=== PATIENT | male | born 1935 | race Caucasian/White ===

== ENCOUNTER → 2019-05-19 | Outpatient (CLI) | payer MEDICARE, BC, OTHER ==
[~2019-05-19] MED LIST: ELIQ5TAB PO; LOSA100T50 PO; MULTCAP PO; ROSU10TA6 PO
[2019-05-19 10:09] LABS: HEMATOCRIT 36.8 % (42.0-52.0); HEMOGLOBIN 12.6 g/dl (13.5-17.5); MEAN CORPUSCULAR HEMOGLOBIN 35.8 pg (27.0-33.0); MEAN CORPUSCULAR HGB CONC 34.2 g/dl (32.0-36.5); MEAN CORPUSCULAR VOLUME 104.5 fl (80.0-96.0); PLATELET COUNT, AUTOMATED 157 10^3/uL (150-450); RED BLOOD COUNT 3.52 10^6/uL (4.30-6.10); WHITE BLOOD COUNT 6.6 10^3/uL (4.0-10.0)
[2019-05-19 10:20] LABS: INR 1.43; PROTHROMBIN TIME 17.1 SECONDS (11.8-14.0)
[2019-05-19 10:34] LABS: ALBUMIN 3.8 GM/DL (3.2-5.2); BILIRUBIN,TOTAL 1.4 MG/DL (0.2-1.0); CALCIUM LEVEL 8.8 MG/DL (8.8-10.2); CREATININE FOR GFR 1.52 MG/DL (0.70-1.30); GLOMERULAR FILTRATION RATE 47.1 (>35); POTASSIUM SERUM 4.3 MEQ/L (3.5-5.1); TOTAL PROTEIN 7.2 GM/DL (6.4-8.2)
[2019-05-19 10:36] LABS: ERYTHROCYTE SEDIMENTATION RATE 77 mm/hr (0-20)
--- NOTE | 2019-05-19 11:06 | REP ---
PA and lateral chest: There are no comparisons. There is a 7 mm nodule inferiorly in the right lung. In the absence of prior studies to document stability. Recommend follow-up CT for further evaluation. Lung [place] otherwise clear. Cardiac size is normal. There is a loop recorder in the anterior chest wall. The giorgio, mediastinum, skeletal structures are unremarkable. Impression: Right lung nodule as described. Follow-up chest CT is recommended for further evaluation. There are no acute cardiopulmonary findings. Electronically Signed by Kendrick Perales MD 05/19/2019 10:57 A
--- NOTE | 2019-05-19 12:15 | ECGEPIP ---
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 Incomplete left bundle branch block pattern Somewhat low voltage with slow precordial R-wave progression; Body habitus versus pulmonary disease. Could not rule out prior septal infarction Nonspecific ST/T-wave abnormality No prior tracing for comparison. Clincal correlation advised Electronically Signed on 05-19-2019 12:14:30 EDT by Beni Franco
== END ==
LOC: M LAB 09:18
PROVIDERS: ATTEND Orthopaedic Surgery
DX: Z01.818 Encounter for other preprocedural examination (principal); M17.12 Unilateral primary osteoarthritis, left knee; I44.7 Left bundle-branch block, unspecified; I48.91 Unspecified atrial fibrillation; Z79.01 Long term (current) use of anticoagulants

== ENCOUNTER 2019-06-07 11:01 | Inpatient (IN) | payer MEDICARE, BC, OTHER ==
--- NOTE | 2019-06-03 09:54 | HPE ---
DATE OF ANTICIPATED ADMISSION: 06/07/2019 ATTENDING PHYSICIAN: Dr. Victor CHIEF COMPLAINT: Left knee pain and stiffness. HISTORY: Patient is an 83-year-old male with progressively worsening left knee pain and stiffness. He has failed to improve with conservative measures. He continues to have symptoms with weightbearing activities and activities of daily living. He has consented for an elective left total knee arthroplasty with Dr. Victor for his continued symptoms. Medical optimization pending with Dr. Ram. CURRENT MEDICATIONS: - losartan 10 mg daily - rosuvastatin 10 mg daily - Eliquis 5 mg twice daily - multivitamin daily ALLERGIES: No known drug allergies. CHRONIC MEDICAL CONDITIONS: 1. Hypertension. 2. Hyperlipidemia. 3. Atrial fibrillation. PAST SURGICAL HISTORY: 1. Prostatectomy. 2. Appendectomy. SOCIAL HISTORY: Patient is a former smoker and denies alcohol use. REVIEW OF SYSTEMS: Patient denies fevers, chills, nausea, vomiting or diarrhea. Denies chest pain, shortness of breath, lightheadedness, dizziness or headaches. Denies any abdominal pain. Patient denies any recent upper respiratory or urinary tract infection symptoms. Patient continues to have left knee pain with weightbearing activities and activities of daily living. PHYSICAL EXAMINATION: GENERAL: Well-nourished, well-developed male in no apparent distress. He is alert, oriented and cooperative. Mood and affect are appropriate. VITAL SIGNS: Blood pressure 132/62, heart rate 56, respirations 14, height 5 feet 11-1/2 inches, weight 223 pounds, temperature 97.9. NECK: Supple without lymphadenopathy. HEART: Regular rate and rhythm. LUNGS: Clear to auscultation bilaterally. ABDOMEN: Soft and nontender to palpation. Bowel sounds are present. MUSCULOSKELETAL: Left knee reveals no erythema, edema or ecchymosis. There is no real tenderness to palpation. Patient has full active range of motion of the left knee with 5/5 strength. No hip irritability elicited with range of motion testing. Calf is soft, nontender to palpation with no palpable cords noted. He is neurovascularly intact distally. LABORATORY DATA: Chest x-ray: There are no acute cardiopulmonary findings. There is a right lung nodule with chest CT recommended. Left knee x-ray notable for end-stage degenerative changes. EKG: Atrial fibrillation with markedly slow ventricular response, incomplete left bundle branch block pattern, somewhat low voltage with slow precordial R-wave progression, body habitus versus pulmonary disease. Cannot rule out prior septal infarction. Nonspecific ST-T wave abnormalities. Comprehensive metabolic profile: BUN elevated at 23, creatinine elevated at 1.52, fasting glucose 87, GFR 47, sodium 141, potassium 4.3, chloride elevated at 109, carbon dioxide 30, anion gap decreased at 5, calcium 8.8. AST 17, ALT 20, alkaline phosphatase 72, total bilirubin elevated at 1.4, total protein 7.2, albumin 3.8, albumin-globulin ratio 1.12. Prothrombin time elevated at 17.1. INR 1.43. Complete blood count: WBC is 6.6, RBCs decreased at 3.52, hemoglobin decreased at 12.6, hematocrit decreased at 36.8, platelets 157. Erythrocyte sedimentation rate elevated at 77. IMPRESSION/PLAN 1. Left knee degenerative arthritis with x-rays notable for end-stage degenerative changes. Patient has consented for an elective left total knee arthroplasty with Dr. Victor for his continued symptoms. Medical optimization pending with Dr. Ram. 2. Right pulmonary nodule. The patient will follow up with his primary progressive care nurse for a dedicated CT scan of the chest for further evaluation. 3. Atrial fibrillation currently on Eliquis. Eliquis was stopped per his primary progressive care nurse recommendations. Patient is also pending cardiology clearance. [facility]
[2019-06-07] VITALS (7 sets, daily range): BP systolic 140–194; BP diastolic 56–82; O2SAT 96–99
[~2019-06-07] VITALS: Ht 182.9 cm; Wt 113.9 kg
[~2019-06-07 11:01] MED LIST changes: +ACETAMINOPHEN 500 MG TAB PO ONE; +LR 1,000 ML IV ONE; +MIDAZOLAM INJ 2 MG/2 ML VIAL (J2250) IV SCH
[2019-06-07] MEDS ORDERED: MIDAZOLAM INJ 2 MG/2 ML VIAL (J2250) As Ordered ONE ×2 (13:34→15:41)
[2019-06-07] MEDS ORDERED: fentaNYL 100 MCG/2 ML INJECTION (J3010) As Ordered ONE ×2 (13:34→15:41)
[2019-06-07] MEDS: ATROPINE SULF 1MG/10ML SYRINGE (J0461) IV SCH ×2 (14:07→14:16)
[2019-06-07] MEDS: fentaNYL 100 MCG/2 ML INJECTION (J3010) IV SCH ×2 (14:28→14:36)
[2019-06-07] MEDS ORDERED: BUPIVACAINE HCL 0.25% 10 ML VIAL As Ordered ONE (14:37)
[2019-06-07] MEDS ORDERED: EPINEPHrine INJ 1 MG/ML 1ML AMP As Ordered ONE (14:37)
[2019-06-07] MEDS ORDERED: TRANEXAMIC ACID 100 MG/ML 10ML VIAL As Ordered ONE (14:37)
[2019-06-07] MEDS ORDERED: ceFAZolin 1GM INJ (J0690 PER 500MG) As Ordered ONE (14:37)
[2019-06-07] MEDS ORDERED: BUPIVACAINE LIPOSOME/PF 1.3% 20ML VIAL (13.3MG/ML)(EXPAREL)(C9290 PER1MG) As Ordered ONE (14:38)
[2019-06-07] MEDS ORDERED: ROPIvacaine 0.5% 30 ML INJECTION (J2795 PER 1MG) ONE (15:00)
[2019-06-07] MEDS ORDERED: LIDOCAINE 1% MDV 20ML VIAL ONE (15:00)
[2019-06-07] MEDS ORDERED: EPINEPHrine INJ 1 MG/ML 1ML AMP ONE (15:00)
[2019-06-07] MEDS ORDERED: LIDOCAINE 2% INJ 100 MG/5 ML SDV (FOR ANES.) As Ordered ONE (15:41)
[2019-06-07] MEDS ORDERED: PROPOFOL 200 MG/20 ML VIAL As Ordered ONE (15:41)
[2019-06-07] MEDS ORDERED: BUPIVACAINE HCL 0.5% 30 ML VIAL As Ordered ONE (15:41)
[2019-06-07] MEDS ORDERED: ePHEDrine SULFATE 25 MG/5 ML(5MG/ML) SYRINGE As Ordered ONE (15:58)
[2019-06-07] MEDS ORDERED: ACETAMINOPHEN 1000MG 100ML IV BTL (OFIRMEV) (J0131 PER 10MG) As Ordered ONE (15:59)
[2019-06-07] MEDS ORDERED: METOCLOPRAMIDE INJ 10MG/2ML VIAL (J2765) IV PRN (17:30)
[2019-06-07] MEDS ORDERED: fentaNYL 100 MCG/2 ML INJECTION (J3010) IV PRN (17:30)
[2019-06-07] MEDS ORDERED: ONDANSETRON 4MG/2ML VIAL (J2405) IV PRN (17:30)
[2019-06-07] MEDS ORDERED: PERCOCET 5MG/325MG TAB PO PRN (17:30)
[2019-06-07] MEDS ORDERED: LR 1,000 ML IV SCH ×2 (17:30→17:45)
[2019-06-07] MEDS ORDERED: HYDROMORPHONE HCL 0.5 MG/ 0.5 ML SYRINGE (J1170 PER 1) IV PRN (17:30)
[2019-06-07] MEDS ORDERED: FLEET ENEMA PR PRN (17:45)
[2019-06-07] MEDS ORDERED: ACETAMINOPHEN TAB 650MG DOSE (2X325MG) PO PRN (17:45)
--- NOTE | 2019-06-07 18:42 | CR ---
DATE OF CONSULTATION: 06/07/2019 CHIEF COMPLAINT: Bradycardia. HISTORY OF PRESENT ILLNESS: This is an 83-year-old gentleman with past medical history of atrial fibrillation on Eliquis, hypertension, hyperlipidemia, who has a loop recorder placed, who comes in for left total knee replacement for osteoarthritis. He is status post surgery and is currently in postop and had postop bradycardia, requiring multiple doses of atropine. The patient reports, however, he has had ongoing issues with bradycardia and he currently has a loop recorder. His outpatient cardiologists were considering putting a pacemaker, but had not reached a decision yet. He is currently completely asymptomatic. REVIEW OF SYSTEMS: Negative of 14 out of 14 systems except as noted above. PAST MEDICAL HISTORY: As noted above in history of present illness (HPI). PAST SURGICAL HISTORY: 1. Prostate surgery. 2. Appendectomy. MEDICATIONS: The patient's home medications are: - Eliquis 5 mg twice a day - losartan 100 mg daily - Crestor 10 mg every other day ALLERGIES: No known drug allergies. SOCIAL HISTORY: Patient lives with his . No smoking, alcohol or drugs. FAMILY HISTORY: No family history of heart disease. PHYSICAL EXAMINATION: Currently, patient is afebrile to 97.3, blood pressure 147/64, pulse of 45, respiratory rate of 15, saturating 100% on room air. GENERAL: He is in no acute distress, pleasant. HEENT: Oropharynx clear. CARDIOVASCULAR: Bradycardiac. No murmurs, rubs or gallops. LUNGS: Clear to auscultation bilaterally. ABDOMEN: Soft, nontender, nondistended. Positive bowel sounds. EXTREMITIES: Left leg is wrapped from recent surgery. No notable edema noted. NEUROLOGIC: He is alert and oriented times three, follows simple commands. No focal neurologic deficits. SKIN: Left knee is currently dressed and intact. PSYCHIATRIC: Mood stable. LABORATORIES: Currently are pending. IMAGING: Patient had a knee x-ray done postoperatively, but the read is currently pending. ASSESSMENT AND PLAN: This is an 83-year-old gentleman with past medical history of atrial fibrillation with loop recorder, hypertension, hyperlipidemia, who presents postoperatively from total knee replacement with bradycardia. PROBLEMS: 1. Bradycardia. It seems like this is probably chronic. He is not on any home beta blockers or calcium channel blockers. He is currently completely asymptomatic; however, given his history and current loop recorder, I am going to consult cardiology. 2. Hypertension. I am going to hold his home losartan for now. 3. Hyperlipidemia. He is on Crestor every other day. 4. Status post total knee replacement. Postoperative management per orthopedics. 5. Atrial fibrillation. Orthopedics plans on resuming his home Eliquis tomorrow. We will continue to follow this patient.
[2019-06-07] MEDS ORDERED: ATROPINE SULF 1MG/10ML SYRINGE (J0461) As Ordered ONE (19:19)
[2019-06-07] MEDS: ROSUVASTATIN 10 MG TAB (CRESTOR) PO SCH (23:02)
[2019-06-07] MEDS: HYDROMORPHONE HCL 0.5 MG/ 0.5 ML SYRINGE (J1170 PER 1) IV PRN (23:12)
[2019-06-08] VITALS (14 sets, daily range): BP systolic 130–162; BP diastolic 52–82; O2SAT 91–96
[2019-06-08] MEDS: HYDROMORPHONE HCL 0.5 MG/ 0.5 ML SYRINGE (J1170 PER 1) IV PRN (03:12)
[2019-06-08 05:22] LABS: HEMATOCRIT 34.2 % (42.0-52.0); HEMOGLOBIN 11.4 g/dl (13.5-17.5); MEAN CORPUSCULAR HEMOGLOBIN 34.4 pg (27.0-33.0); MEAN CORPUSCULAR HGB CONC 33.3 g/dl (32.0-36.5); MEAN CORPUSCULAR VOLUME 103.3 fl (80.0-96.0); PLATELET COUNT, AUTOMATED 150 10^3/uL (150-450); RED BLOOD COUNT 3.31 10^6/uL (4.30-6.10); WHITE BLOOD COUNT 9.8 10^3/uL (4.0-10.0)
[2019-06-08 05:33] LABS: INR 1.18; PROTHROMBIN TIME 14.7 SECONDS (11.8-14.0)
[2019-06-08 05:46] LABS: CALCIUM LEVEL 8.3 MG/DL (8.8-10.2); CREATININE FOR GFR 1.29 MG/DL (0.70-1.30); GLOMERULAR FILTRATION RATE 56.9 (>35); POTASSIUM SERUM 4.2 MEQ/L (3.5-5.1)
--- NOTE | 2019-06-08 07:21 | REP ---
REASON: Status post TKR. AP and lateral portable views were obtained. The femoral and tibial components of the TKR are well seated and well approximated. There is expected postoperative soft tissue swelling. There is an anterior skin staple line in place. IMPRESSION: Status post TKR. Electronically Signed by Gavino Vegas DO 06/08/2019 10:08 A
--- NOTE | 2019-06-08 07:57 | RO ---
DATE OF PROCEDURE: 06/07/2019 PREPROCEDURE DIAGNOSIS: Left knee degenerative arthritis. POSTPROCEDURE DIAGNOSIS: Left knee degenerative arthritis. PROCEDURE: Left total knee arthroplasty using a size 8 cruciate retaining Attune femoral component cemented with a size 8 tibial tray and a 6 mm rotating platform polyethylene insert and a 38 mm polyethylene button. All components were cemented. Prostheses made by [employer]. SURGEON: Dr. Lesly iVctor PRESS WORKER HELPER: Aura Gaytan PA-C ANESTHESIA: Spinal with left femoral nerve block. COMPLICATIONS: None. SPECIMENS: Joint surface. ESTIMATED BLOOD LOSS: 20 mL. TOURNIQUET TIME: 58 minutes. DESCRIPTION OF PROCEDURE: Antibiotics given intravenously preoperatively. Then a successful left femoral nerve block and then a spinal anesthetic was induced. A tourniquet was placed in the left upper thigh and not inflated. The left lower extremity was carefully prepped, draped in the usual sterile fashion and elevated and after an appropriate time-out, the tourniquet was inflated. Then a longitudinal incision was made from a medial parapatellar approach to the knee. Bovie cautery was used to coagulate the crossing vessels. Subperiosteal dissection around the proximal, medial and lateral tibial plateau was performed and the patella was everted. The anterior cruciate ligament (ACL) was debrided. Drill placed down the center of the femoral canal followed by the intramedullary trever with the distal femoral cutting jig set at 5 degree valgus, cut at 9 mm resection level for a left knee. It was pinned into position, distal femoral cut performed. The AP sizing jig measured for a size #8 prosthesis. 3 degree external rotation were dialed in and then the drill holes made and the 4-in-1 block applied. Anterior and posterior chamfer cuts then performed. Notchplasty jig was then applied and then the notchplasty performed. We then exposed the proximal tibia, used the extramedullary alignment jig estimated it being parallel to the mechanical axis referencing off the medial tibial condyle at 4 mm resection level. The block was pinned into position and a second check with the extramedullary trever confirmed that we appeared to be parallel to the mechanical axis. We then performed the proximal tibial osteotomy and then the laminar road conductor was placed laterally and we performed a completion medial meniscectomy and debridement of posterior and medial osteophytes. Then placed the laminar road conductor medially and performed a completion of the lateral meniscectomy and debridement of the posterolateral osteophytes. The spacer blocks were applied and the 6 mm spacer had good symmetry both in flexion and in extension to varus and valgus stress testing. We then exposed the proximal tibia, sized for a size #8 tibial tray, which was pinned into position followed by the reamer and broach, followed by the trial 6 mm insert and then the 8 mm femoral trial. It fit nicely. Then the knee was brought into extension, the patella everted. A patellar osteotomy was performed and sized for a 38 button, lug holes drilled, trial placed and the patellofemoral tracking was anatomic. At this point, we drilled the lug holes for the femur and removed all trial components. Copiously pulsatile lavaged and irrigated out the knee joint, placed Exparel in the subperiosteal tissues along the distal femur and the proximal tibia as Ms. Aura Gaytan, at this point, mixed the cement on the back table as I prepared the bony surfaces for cementing by copiously pulsatile lavaged irrigating and thoroughly drying all of the bony surfaces. Ms. Aura Gaytan was also critical to the success of this difficult operating by helping with appropriate soft tissue retraction, helped to mix the cement, helped to close the wound, helped to prepare the patient, amongst many other tasks to allow me to perform the operation smoothly, efficiently and safely. We then cemented the tibial tray, removed excess cement, plated the polyethylene. Cemented the femoral component, removed excess cement and brought the knee into extension. We then cemented the patellar button and the removed excess cement and held it with a clamp with the knee in full extension until the cement hardened. As we were awaiting this, we copiously irrigated out the knee joint, then instilled tranexamic acid in the knee joint. We then closed the apex of the arthrotomy with two #1-0 PDS sutures. The medial parapatellar area was closed with a #1-0 PDS suture, then a running double-arm #1-0 Stratafix used to close the capsule, then the tourniquet was released. We irrigated between layers, closed the deep subdermal tissues with interrupted #2-0 PDS sutures. Skin was closed with nicanor covered by a Optifoam with dry sterile bulky dressing. Then the patient was transferred to the recovery room in stable condition. There were no intraoperative complications.
[2019-06-08] MEDS: APIXABAN 5 MG TAB (ELIQUIS) PO SCH ×2 (08:03→20:40)
[2019-06-08] MEDS: MIRALAX *UNIT DOSE* 17GM PACKET PO SCH (08:03)
[2019-06-08] MEDS: MOM 30ML SUSPENSION UDC PO SCH (08:03)
[2019-06-08] MEDS: PERCOCET 5MG/325MG TAB PO PRN ×3 (08:03→21:45)
[2019-06-08] MEDS ORDERED: SLF 3 ML SYR IV PRN (08:30)
[2019-06-08] MEDS ORDERED: ONDANSETRON 4MG/2ML VIAL (J2405) IV ONE (10:00)
--- NOTE | 2019-06-08 12:00 | IPNPDOC ---
Date Seen The patient was seen on 06/08/19. Progress Note SUBJECTIVE: Patient tells me that he is feeling well, he tells me that over the last several months intermittently has had small episodes of lightheadedness but no episodes frankly passing out or anything that he would call symptoms of dizziness. He tells me he is quite active. He currently does have some pain in his left knee as expected otherwise patient denies chest pain, shortness breath, nausea, vomiting, fevers, chills OBJECTIVE PHYSICAL EXAMINATION: VITAL SIGNS: Please see below. GENERAL: Pleasant elderly man sitting up in bed awake alert oriented speaking in complete sentences no acute distress HEENT: Moist mucous membranes no elevation in CVP CARDIOVASCULAR: S1 S2 irregular bradycardic no additional heart sounds a ppreciated. RESPIRATORY: Clear to auscultation bilaterally. ABDOMINAL: Bowel sounds present abdomen soft and nontender, obese EXTREMITIES: No clubbing cyanosis or edema left knee is wrapped in an Bobby wrap dressing is clean dry and intact NEUROLOGICAL: Spontaneously moves all 4 extremities cranial 2 through 12 grossly intact no gross focal deficits appreciated, decreased range of motion of the left lower extremity secondary to pain PSYCHOLOGICAL: Appropriate LABORATORY DATA, MICROBIOLOGY: Please see below. IMAGING STUDIES: Status post TKR ASSESSMENT AND PLAN: This is a 83-year-old status post left total knee replacement with significant bradycardia post-procedurally. PROBLEMS: 1. Bradycardia: Patient does not demonstrate any clear symptoms post- procedurally he did receive several doses of atropine at the present time the patient denies any complaints and tells me that he has known about this for quite some time. I did offer an inpatient cardiology consultation is less receptive to this at this time I would rather have a pacemaker placed through his primary tank filler's office significant weight. I reviewed his telemetry although he is quite bradycardic at night while sleeping he is certainly asymptomatic with it. He is currently wearing a loop recorder which he will continue with his primary tank filler. I would recommend monitoring him on telemetry for an additional 24 hours and symptoms as well as him work with physical therapy should he not have any symptoms and clear physical therapy could consider discharge home with outpatient follow-up to his primary tank filler's office 2. Hypertension: Home losartan is on hold. 3. Dyslipidemia: Continue with every other day Crestor. 4. Osteoporosis:. Perioperative Management as per orthopedic surgery. 5. Atrial fibrillation: He is anticoagulated she is bradycardic not requiring any rate controlling agents as outlined above DVT prophylaxis: As per orthopedic surgery anticoagulation DISPOSITION: Possibly home within the next 24-48 hours. VS, I&O, 24H, Fishbone Vital Signs/I&O Vital Signs Date Time Temp Pulse Resp B/P (MAP) Pulse Ox O2 Delivery O2 Flow Rate FiO2 06/08/19 08:33 17 06/08/19 08:00 97.9 72 144/52 (82) 98 06/07/19 15:18 3 I&O- Last 24 Hours up to 6 AM 06/08/19 06:00 Intake Total 2550 ml Output Total 1250 ml Balance 1300 ml Laboratory Data 24H LABS Laboratory Tests 2 06/08/19 05:06: Nucleated Red Blood Cells % (auto) 0.0, Prothrombin Time 14.7H, Prothromb Time International Ratio 1.18, Anion Gap 5L, Glomerular Filtration Rate 56.9, Blood Urea Nitrogen 23H, Creatinine 1.29, Sodium Level 141, Potassium Level 4.2, Chloride Level 108H, Carbon Dioxide Level 28, Calcium Level 8.3L CBC/BMP Laboratory Tests 06/08/19 05:06 Red Blood Count 3.31 L, Mean Corpuscular Volume 103.3 H, Mean Corpuscular Hemoglobin 34.4 H, Mean Corpuscular Hemoglobin Concent 33.3, Red Cell Distribution Width 11.7, Calcium Level 8.3 L MIGUEL SINGH MD Jun 08, 2019 12:00
[2019-06-08] MEDS ORDERED: ONDANSETRON 4MG/2ML VIAL (J2405) IV SCH (13:00)
[2019-06-08] MEDS ORDERED: ONDANSETRON 4MG/2ML VIAL (J2405) IV PRN (13:15)
[2019-06-08] MEDS: SLF 3 ML SYR IV SCH ×2 (13:37→20:40)
[2019-06-09] VITALS (7 sets, daily range): BP systolic 169–174; BP diastolic 72–74; O2SAT 91–93
[2019-06-09] MEDS: SLF 3 ML SYR IV SCH ×2 (06:00→14:10)
[2019-06-09] MEDS ORDERED: HYDR-3713 PO (07:14)
[2019-06-09 08:11] LABS: HEMATOCRIT 36.2 % (42.0-52.0); HEMOGLOBIN 12.1 g/dl (13.5-17.5); MEAN CORPUSCULAR HGB CONC 33.4 g/dl (32.0-36.5); MEAN CORPUSCULAR VOLUME 104.6 fl (80.0-96.0); PLATELET COUNT, AUTOMATED 150 10^3/uL (150-450); RED BLOOD COUNT 3.46 10^6/uL (4.30-6.10); WHITE BLOOD COUNT 14.5 10^3/uL (4.0-10.0)
[2019-06-09 08:26] LABS: INR 1.58; PROTHROMBIN TIME 18.6 SECONDS (11.8-14.0)
[2019-06-09] MEDS: ROSUVASTATIN 10 MG TAB (CRESTOR) PO SCH (08:31)
[2019-06-09] MEDS: MIRALAX *UNIT DOSE* 17GM PACKET PO SCH (08:31)
[2019-06-09] MEDS: PERCOCET 5MG/325MG TAB PO PRN ×3 (08:31→16:05)
[2019-06-09] MEDS: APIXABAN 5 MG TAB (ELIQUIS) PO SCH (08:31)
[2019-06-09] MEDS: MOM 30ML SUSPENSION UDC PO SCH (08:31)
[2019-06-09 08:38] LABS: CALCIUM LEVEL 8.5 MG/DL (8.8-10.2); CREATININE FOR GFR 1.27 MG/DL (0.70-1.30); GLOMERULAR FILTRATION RATE 57.9 (>35); POTASSIUM SERUM 3.8 MEQ/L (3.5-5.1)
--- NOTE | 2019-06-09 13:30 | IPNPDOC ---
Date Seen The patient was seen on 06/09/19. Progress Note SUBJECTIVE: Patient is a 83-year-old male who is admitted for elective left knee replacement. Patient was seen and examined this morning laying comfortably on his bed with his son and at bedside. Patient has no complaints this morning and would like to go home. Telemetry shows his heart rate has been in the 60s to 70s this am. He denies any lightheadedness or dizziness. He does have some aches in his left thigh but notes that he expects this from the surgery. He denies lightheadedness, dizziness, chest pain, shortness of breath, vomiting. He worked with PT the day before as well as of today was a little bit more of a struggle due to his left knee but he will continue with PT when he goes home and voices no concerns. OBJECTIVE PHYSICAL EXAMINATION: VITAL SIGNS: Please see below. GENERAL: Very pleasant 83-year-old male laying flat on his bed. Alert and orientedx3, speaking in complete sentences in no acute distress. HEENT: Atraumatic normocephalic moist mucous membranes no JVD noted CARDIOVASCULAR: S1-S2 sounds present irregularly rhythm with bradycardic rate with no audible murmurs or rubs. RESPIRATORY: Clear to auscultate bilaterally no wheezing , rhonchi or rales EXTREMITIES: No lower extremity edema for calf tenderness noted. Left knee is wrapped in an Bobby bandage dressing is clear dry with no discharge noted. LABORATORY DATA, IMAGING STUDIES, MICROBIOLOGY: Please see below. DVT prophylaxis ordered?: Yes per surgery, continue apixaban ASSESSMENT AND PLAN: This is a 83-year-old male who is admitted for elective left knee replacement medical team was consulted for bradycardia management. PROBLEMS: Bradycardia -stable, known history of bradycardia -post-procedurally s/p several doses of atropine -f/u w/ primary cane splicer's office for discussion for pacemaker placement. Hypertension: -may resume losartan upon discharge Dyslipidemia -c/w q2d Crestor. Osteoporosis: -Perioperative Management as per orthopedic surgery. Atrial fibrillation -c/w apixaban -Not on rate controlling medication for he is currently bradycardic VS, I&O, 24H, Fishbone Vital Signs/I&O Vital Signs Date Time Temp Pulse Resp B/P (MAP) Pulse Ox O2 Delivery O2 Flow Rate FiO2 06/09/19 12:40 18 06/09/19 09:01 97 06/09/19 08:00 97.7 70 169/72 (104) 06/07/19 15:18 3 I&O- Last 24 Hours up to 6 AM 06/09/19 06:00 Intake Total 810 ml Output Total 0 ml Balance 810 ml Laboratory Data 24H LABS Laboratory Tests 2 06/09/19 07:33: Nucleated Red Blood Cells % (auto) 0.0, Prothrombin Time 18.6H, Prothromb Time International Ratio 1.58, Anion Gap 8, Glomerular Filtration Rate 57.9, Blood Urea Nitrogen 21H, Creatinine 1.27, Sodium Level 138, Potassium Level 3.8, Chloride Level 103, Carbon Dioxide Level 27, Calcium Level 8.5L CBC/BMP Laboratory Tests 06/09/19 07:33 Red Blood Count 3.46 L, Mean Corpuscular Volume 104.6 H, Mean Corpuscular Hemoglobin 35.0 H, Mean Corpuscular Hemoglobin Concent 33.4, Red Cell Distribution Width 11.9, Calcium Level 8.5 L OCTAVIO BENITEZ DO Jun 09, 2019 13:30
== END 2019-06-09 16:43 | disposition home or self-care (01) | DRG 470 ==
LOC: M OR 11:01 → M PCU 18:19
PROVIDERS: ADMIT Orthopaedic Surgery; ATTEND Orthopaedic Surgery
PROC: 0SRD0J9 Replacement of Left Knee Joint with Synthetic Substitute, Cemented, Open Approach (ICD-10-PCS; principal; 2019-06-07 14:25)
DX: M17.12 Unilateral primary osteoarthritis, left knee (principal); I10 Essential (primary) hypertension; E78.5 Hyperlipidemia, unspecified; M81.0 Age-related osteoporosis without current pathological fracture; I48.91 Unspecified atrial fibrillation; R00.1 Bradycardia, unspecified; R91.1 Solitary pulmonary nodule; Z90.49 Acquired absence of other specified parts of digestive tract; Z90.79 Acquired absence of other genital organ(s); Z87.891 Personal history of nicotine dependence; Z79.01 Long term (current) use of anticoagulants; Z79.899 Other long term (current) drug therapy

== ENCOUNTER 2023-06-19 14:27 | Emergency (ER) | payer MEDICARE, BC, OTHER ==
[~2023-06-19] VITALS: Ht 182.9 cm; Wt 93.7 kg
[~2023-06-19 14:27] MED LIST changes: -ACETAMINOPHEN 500 MG TAB PO ONE; +HYDR-3713 PO; +LOSA100T46 PO; -LOSA100T50 PO; -LR 1,000 ML IV ONE; -MIDAZOLAM INJ 2 MG/2 ML VIAL (J2250) IV SCH
[2023-06-19] MEDS ORDERED: OXYMETAZOLINE 0.05% NASAL SPRAY (AFRIN) ONE (16:45)
[2023-06-19] MEDS ORDERED: SILVER NITRATE APPLICATOR (1 = QTY 10) TOP ONE (16:45)
[2023-06-19 17:33] VITALS: BP 152/78; TEMP 97.4; O2SAT 98
== END 2023-06-19 17:35 | disposition home or self-care (01) ==
LOC: M ED 14:27
DX: R04.0 Epistaxis (principal); I48.91 Unspecified atrial fibrillation; E78.00 Pure hypercholesterolemia, unspecified; I10 Essential (primary) hypertension; G47.30 Sleep apnea, unspecified; Z79.899 Other long term (current) drug therapy; Z79.01 Long term (current) use of anticoagulants

== ENCOUNTER 2024-01-19 13:38 | Emergency (ER) | payer MEDICARE, BC, OTHER ==
[~2024-01-19] VITALS: Ht 182.9 cm; Wt 92.9 kg
[2024-01-19 13:40] VITALS: BP 151/70; TEMP 96.5; O2SAT 99
[2024-01-19] MEDS ORDERED: FOLI1TAB11 PO (14:00)
[2024-01-19] MEDS ORDERED: B-12100010 PO (14:00)
[2024-01-19] MEDS ORDERED: HYDR12.55 PO (14:00)
[2024-01-19 14:56] LABS: BASO % 0.2 % (0.0-1.0); HEMATOCRIT 30.8 % (42.0-52.0); HEMOGLOBIN 10.2 g/dl (13.5-17.5); LYMPH # 1.5 10^3/uL (1.5-5.0); MEAN CORPUSCULAR HEMOGLOBIN 33.2 pg (27.0-33.0); MEAN CORPUSCULAR HGB CONC 33.1 g/dl (32.0-36.5); MEAN CORPUSCULAR VOLUME 100.3 fl (80.0-96.0); MONO # 1.5 10^3/uL (0.0-0.8); MONO % 13.2 % (2.0-8.0); NEUTROPHILS # 7.9 10^3/uL (1.5-8.5); NEUTROPHILS % 68.7 % (36.0-66.0); PLATELET COUNT, AUTOMATED 191 10^3/uL (150-450); RED BLOOD COUNT 3.07 10^6/uL (4.30-6.10); WHITE BLOOD COUNT 11.4 10^3/uL (4.0-10.0)
[2024-01-19 15:24] LABS: CALCIUM LEVEL 8.2 MG/DL (8.3-10.6); CREATININE FOR GFR 1.77 MG/DL (0.70-1.30); POTASSIUM SERUM 3.7 MMOL/L (3.5-5.1)
== END 2024-01-19 19:24 | disposition left against medical advice (07) ==
LOC: M ED 13:38
DX: Z53.21 Procedure and treatment not carried out due to patient leaving prior to being seen by health care provider (principal)

== ENCOUNTER → 2024-02-26 | Outpatient (CLI) | payer MEDICARE, BC ==
[~2024-02-26] MED LIST changes: +B-12100010 PO; +E-Z-GAS II EFFERVESCENT PACKET (SODIUM BICARB./CITRIC ACID/SIMETHICONE) As Ordered ONE; +E-Z-HD 98% w/w 340GM SUSP BTL As Ordered ONE; +E-Z-PAQUE 96% w/w SUSP 176GM BTL As Ordered ONE; +FOLI1TAB11 PO; +HYDR12.55 PO
== END ==
LOC: M RAD 08:58
PROVIDERS: ATTEND Otolaryngology
DX: R11.0 Nausea (principal)

== ENCOUNTER → 2024-03-01 | Outpatient (CLI) | payer MEDICARE, BC ==
[~2024-03-01] MED LIST changes: -E-Z-GAS II EFFERVESCENT PACKET (SODIUM BICARB./CITRIC ACID/SIMETHICONE) As Ordered ONE; -E-Z-HD 98% w/w 340GM SUSP BTL As Ordered ONE; -E-Z-PAQUE 96% w/w SUSP 176GM BTL As Ordered ONE
== END ==
LOC: M PLARAD 10:53
PROVIDERS: ATTEND Internal Medicine
DX: R91.1 Solitary pulmonary nodule (principal)
CPT/HCPCS: 78815; A9552

== ENCOUNTER → 2024-03-17 | Outpatient (CLI) | payer MEDICARE, BC ==
[~2024-03-17] MED LIST changes: -ROSU10TA6 PO; +ROSU10TA61 PO
== END ==
LOC: M PLAIMG 07:57
PROVIDERS: ATTEND Otolaryngology
DX: J32.0 Chronic maxillary sinusitis (principal); R13.10 Dysphagia, unspecified; R49.0 Dysphonia; R04.0 Epistaxis

== ENCOUNTER → 2024-03-24 | Outpatient (CLI) | payer MEDICARE, BC ==
[~2024-03-24] MED LIST changes: +BARIUM SULFATE 700 MG TABLET (E-Z-DISK) As Ordered ONE; +E-Z-GAS II EFFERVESCENT PACKET (SODIUM BICARB./CITRIC ACID/SIMETHICONE) As Ordered ONE; +E-Z-HD 98% w/w 340GM SUSP BTL As Ordered ONE; +E-Z-PAQUE 96% w/w SUSP 176GM BTL As Ordered ONE; +VARIBAR NECTAR 40% w/v 240ML SUSP BTL As Ordered ONE; +VARIBAR PUDDING 40% w/v 230ML TUBE As Ordered ONE
== END ==
LOC: M RAD 12:26
PROVIDERS: ATTEND Otolaryngology
DX: R49.0 Dysphonia (principal)

== ENCOUNTER → 2024-03-31 | Outpatient (CLI) | payer MEDICARE, BC ==
[~2024-03-31] MED LIST changes: -BARIUM SULFATE 700 MG TABLET (E-Z-DISK) As Ordered ONE; -E-Z-GAS II EFFERVESCENT PACKET (SODIUM BICARB./CITRIC ACID/SIMETHICONE) As Ordered ONE; -E-Z-HD 98% w/w 340GM SUSP BTL As Ordered ONE; -E-Z-PAQUE 96% w/w SUSP 176GM BTL As Ordered ONE; +HOME MED LIST COMPLETE! XX SCH; +LIDOCAINE 1% MDV 20ML VIAL As Ordered ONE; +LOSA50TA28 PO; +POTA10CA70 PO; +THERTAB52 PO; -VARIBAR NECTAR 40% w/v 240ML SUSP BTL As Ordered ONE; -VARIBAR PUDDING 40% w/v 230ML TUBE As Ordered ONE
[2024-03-31 12:25] VITALS: BP 140/65; TEMP 97.7; O2SAT 100
== END ==
LOC: M IRPRO 11:53
PROVIDERS: ATTEND Internal Medicine Pulmonary Disease
DX: R91.1 Solitary pulmonary nodule (principal)

== ENCOUNTER 2024-04-06 12:46 | Day surgery (SDC) | payer MEDICARE, BC ==
[~2024-04-06] VITALS: Ht 182.9 cm; Wt 85.6 kg
[~2024-04-06 12:46] MED LIST changes: -HOME MED LIST COMPLETE! XX SCH; -LIDOCAINE 1% MDV 20ML VIAL As Ordered ONE
[2024-04-06] MEDS ORDERED: LR 1,000 ML IV SCH ×2 (13:20→20:30)
[2024-04-06] MEDS: LEVALBUTEROL 1.25MG 0.5ML CONCENTRATE NEB NEB ONE (14:06)
[2024-04-06] MEDS ORDERED: propofoL 200 MG/20 ML VIAL As Ordered ONE (15:45)
[2024-04-06] MEDS ORDERED: fentaNYL 100 MCG/2 ML INJECTION As Ordered ONE (15:45)
[2024-04-06] MEDS ORDERED: ROCURONIUM BROMIDE 50MG/5ML VIAL As Ordered ONE (15:45)
[2024-04-06] MEDS ORDERED: LIDOCAINE 2% 100MG/5ML SDV (FOR ANES.) As Ordered ONE (15:45)
[2024-04-06] MEDS: METHYLENE BLUE 0.5% (5MG/ML) 10 ML AMP (PROVAYBLUE) As Ordered ONE (16:27)
[2024-04-06] MEDS: OXYMETAZOLINE 0.05% NASAL SPRAY (AFRIN) As Ordered ONE (16:28)
[2024-04-06] MEDS ORDERED: ONDANSETRON 4MG 2ML VIAL As Ordered ONE (16:58)
[2024-04-06] MEDS ORDERED: SUGAMMADEX SODIUM 500 MG/5 ML VIAL (BRIDION) As Ordered ONE (17:10)
[2024-04-06] MEDS ORDERED: GLYCOPYRROLATE INJ 0.2 MG/ML 2 ML VIAL As Ordered ONE (17:19)
[2024-04-06] MEDS ORDERED: fentaNYL 100 MCG/2 ML INJECTION IV PRN (18:05)
[2024-04-06] MEDS ORDERED: ONDANSETRON 4MG 2ML VIAL IV PRN (18:05)
[2024-04-06] MEDS ORDERED: MORPHINE 2 MG/ML 1ML VIAL IV PRN (18:05)
[2024-04-06] MEDS ORDERED: oxyCODONE 5MG TAB PO PRN (18:05)
[2024-04-06] MEDS: LIDOCAINE W/EPINEPHRINE 1% 20ML VIAL As Ordered ONE (18:19)
[2024-04-06 19:15] VITALS: BP 146/66; TEMP 98.5; O2SAT 96
== END 2024-04-06 19:35 | disposition home or self-care (01) ==
LOC: M SDC 12:46
PROVIDERS: ATTEND Otolaryngology
DX: J38.3 Other diseases of vocal cords (principal); R13.10 Dysphagia, unspecified; R49.0 Dysphonia; I48.91 Unspecified atrial fibrillation; G47.30 Sleep apnea, unspecified; Z85.46 Personal history of malignant neoplasm of prostate; Z79.01 Long term (current) use of anticoagulants; Z87.891 Personal history of nicotine dependence; Z90.49 Acquired absence of other specified parts of digestive tract

== ENCOUNTER 2024-04-08 10:43 | Inpatient (IN) | payer MEDICARE, BC ==
[~2024-04-08] VITALS: Ht 182.9 cm; Wt 88.2 kg
[2024-04-08 11:36] LABS: BASO % 0.1 % (0.0-1.0); EOS % 0.2 % (0.0-3.0); HEMATOCRIT 27.8 % (42.0-52.0); LYMPH # 0.6 10^3/uL (1.5-5.0); LYMPH % 2.8 % (24.0-44.0); MEAN CORPUSCULAR HGB CONC 32.4 g/dl (32.0-36.5); MEAN CORPUSCULAR VOLUME 98.9 fl (80.0-96.0); MONO # 2.1 10^3/uL (0.0-0.8); MONO % 9.5 % (2.0-8.0); NEUTROPHILS % 85.6 % (36.0-66.0); PLATELET COUNT, AUTOMATED 193 10^3/uL (150-450); RED BLOOD COUNT 2.81 10^6/uL (4.30-6.10); WHITE BLOOD COUNT 22.2 10^3/uL (4.0-10.0)
[2024-04-08 11:50] LABS: INR 1.39; PARTIAL THROMBOPLASTIN TIME 31.4 SECONDS (24.8-34.2); PROTHROMBIN TIME 16.7 SECONDS (12.5-14.5)
[2024-04-08 12:01] LABS: CK-MB VALUE MASS 4.1 NG/ML (<3.6)
[2024-04-08 12:02] LABS: CALCIUM LEVEL 8.3 MG/DL (8.3-10.6); CREATININE FOR GFR 1.48 MG/DL (0.70-1.30); POTASSIUM SERUM 4.1 MMOL/L (3.5-5.1)
[2024-04-08 12:13] LABS: MB/CK RELATIVE INDEX 8.54 (< OR =4)
[2024-04-08] MEDS ORDERED: ISOVUE-370 76% 100ML VIAL As Ordered ONE (13:09)
[2024-04-08 13:22] LABS: CK-MB VALUE MASS 4.8 NG/ML (<3.6); MB/CK RELATIVE INDEX 11.7 (< OR =4)
[2024-04-08] MEDS ORDERED: HOME MED LIST COMPLETE! XX SCH (15:10)
[2024-04-08] MEDS: ASPIRIN 81MG CHEW TABLET PO ONE (15:35)
[2024-04-08 16:24] LABS: C REACTIVE PROTEIN QUANTITATIV 11.5 MG/DL (<1.0)
[2024-04-08 16:26] LABS: CHOLESTEROL RISK RATIO 3.46 (<5); HDL CHOLESTEROL 30.3 MG/DL (>40); LDL CHOLESTEROL 61.3 MG/DL (<100); NON-HDL-C 74.7 MG/DL
[2024-04-08 16:38] LABS: PROCALCITONIN 0.2 ng/ml
[2024-04-08 16:39] LABS: THYROID STIMULATING HORMONE 2.576 uIU/ML (0.55-4.78)
[2024-04-08 16:46] LABS: ERYTHROCYTE SEDIMENTATION RATE 72 mm/hr (0-20)
[2024-04-08 17:16] LABS: HEMOGLOBIN A1c 5.8 % (4.0-6.0)
[2024-04-08 17:36] VITALS: BP 143/74; TEMP 99.4; O2SAT 97
[2024-04-08] MEDS: NS 1,000 ML IV SCH (17:42)
[2024-04-08] MEDS: PIPERACILLIN/TAZOBACTAM SOD 3.375 GM in D5W MINI-BAG PLUS 50 ML IV SCH (17:43)
[2024-04-08] MEDS: ASPIRIN 81MG CHEW TABLET PEG SCH (17:43)
[2024-04-08 18:46] VITALS: BP 119/58; TEMP 98.8; O2SAT 92
[2024-04-08] MEDS: APIXABAN 5 MG TAB (ELIQUIS) PEG SCH (22:13)
[2024-04-08] MEDS: ATORVASTATIN 20 MG TAB PEG SCH (22:14)
[2024-04-08 23:07] VITALS: BP 127/61; TEMP 98.6; O2SAT 96
[2024-04-09] VITALS (7 sets, daily range): BP systolic 104–142; BP diastolic 56–63; TEMP 97–97.8; O2SAT 93–98
[2024-04-09 06:54] LABS: HEMATOCRIT 24.2 % (42.0-52.0); HEMOGLOBIN 7.8 g/dl (13.5-17.5); MEAN CORPUSCULAR HEMOGLOBIN 31.7 pg (27.0-33.0); MEAN CORPUSCULAR HGB CONC 32.2 g/dl (32.0-36.5); MEAN CORPUSCULAR VOLUME 98.4 fl (80.0-96.0); PLATELET COUNT, AUTOMATED 177 10^3/uL (150-450); RED BLOOD COUNT 2.46 10^6/uL (4.30-6.10)
[2024-04-09 07:17] LABS: CREATININE FOR GFR 1.52 MG/DL (0.70-1.30); GLOMERULAR FILTRATION RATE 46.5 (>35); MAGNESIUM LEVEL 1.7 MG/DL (1.8-2.4); POTASSIUM SERUM 3.7 MMOL/L (3.5-5.1)
[2024-04-09] MEDS: MAG SULF 1GM/100ML (MAG RUN) 1 GM in IV 1 EA IV SCH (09:24)
[2024-04-09] MEDS: ATORVASTATIN 20 MG TAB PEG SCH (21:58)
[2024-04-09] MEDS: APIXABAN 2.5 MG TAB (ELIQUIS) PEG SCH (21:58)
[2024-04-10] VITALS (10 sets, daily range): BP systolic 116–147; BP diastolic 58–89; TEMP 97–98; O2SAT 91–99
[2024-04-10 06:44] LABS: BASO % 0.1 % (0.0-1.0); EOS % 0.1 % (0.0-3.0); HEMOGLOBIN 7.5 g/dl (13.5-17.5); LYMPH # 0.8 10^3/uL (1.5-5.0); LYMPH % 6.8 % (24.0-44.0); MEAN CORPUSCULAR HEMOGLOBIN 32.2 pg (27.0-33.0); MEAN CORPUSCULAR HGB CONC 32.6 g/dl (32.0-36.5); MEAN CORPUSCULAR VOLUME 98.7 fl (80.0-96.0); MONO # 1.2 10^3/uL (0.0-0.8); MONO % 10.1 % (2.0-8.0); NEUTROPHILS # 9.6 10^3/uL (1.5-8.5); NEUTROPHILS % 80.9 % (36.0-66.0); PLATELET COUNT, AUTOMATED 171 10^3/uL (150-450); RED BLOOD COUNT 2.33 10^6/uL (4.30-6.10); WHITE BLOOD COUNT 11.8 10^3/uL (4.0-10.0)
[2024-04-10 07:04] LABS: CALCIUM LEVEL 7.9 MG/DL (8.3-10.6); CREATININE FOR GFR 1.63 MG/DL (0.70-1.30); GLOMERULAR FILTRATION RATE 42.9 (>35); MAGNESIUM LEVEL 2.1 MG/DL (1.8-2.4); POTASSIUM SERUM 3.7 MMOL/L (3.5-5.1)
[2024-04-10 10:26] LABS: C REACTIVE PROTEIN QUANTITATIV 15.6 MG/DL (<1.0)
[2024-04-10 16:49] LABS: HEMOGLOBIN 8.9 g/dl (13.5-17.5)
[2024-04-10] MEDS: LevoFLOXacin 750 MG TABLET PEG SCH (17:24)
[2024-04-11 04:00] VITALS: BP 150/60; TEMP 98; O2SAT 98
[2024-04-11 06:24] LABS: BASO % 0.1 % (0.0-1.0); EOS % 0.1 % (0.0-3.0); HEMATOCRIT 26.2 % (42.0-52.0); HEMOGLOBIN 8.9 g/dl (13.5-17.5); LYMPH % 10.9 % (24.0-44.0); MEAN CORPUSCULAR HEMOGLOBIN 32.4 pg (27.0-33.0); MEAN CORPUSCULAR VOLUME 95.3 fl (80.0-96.0); MONO % 11.4 % (2.0-8.0); NEUTROPHILS # 6.9 10^3/uL (1.5-8.5); NEUTROPHILS % 75.8 % (36.0-66.0); PLATELET COUNT, AUTOMATED 181 10^3/uL (150-450); RED BLOOD COUNT 2.75 10^6/uL (4.30-6.10); WHITE BLOOD COUNT 9.2 10^3/uL (4.0-10.0)
[2024-04-11 06:52] LABS: CREATININE FOR GFR 1.58 MG/DL (0.70-1.30); GLOMERULAR FILTRATION RATE 44.5 (>35); POTASSIUM SERUM 3.6 MMOL/L (3.5-5.1)
[2024-04-11 07:51] VITALS: BP 144/65; TEMP 97.8; O2SAT 98
[2024-04-11] MEDS: BUDESONIDE 0.5 MG/2 ML INHALATION SUSPENSION NEB SCH (08:34)
[2024-04-11] MEDS: ALBUTEROL SULFATE 2.5MG/0.5ML INH NEB SOLN NEB SCH (08:34)
[2024-04-11] MEDS: ASPIRIN 81MG CHEW TABLET PEG SCH (09:46)
[2024-04-11] MEDS: predniSONE 20 MG TAB PEG SCH (09:47)
[2024-04-11 12:49] VITALS: BP 132/70; TEMP 97; O2SAT 96
[2024-04-11] MEDS ORDERED: VENTAER INH (15:15)
[2024-04-11] MEDS ORDERED: ASPI81CH8 PEG (15:15)
[2024-04-11] MEDS ORDERED: FERR325T3 PEG (15:15)
[2024-04-11] MEDS ORDERED: ELIQ2.5T PO (15:15)
[2024-04-11] MEDS ORDERED: THERTAB52 PEG (15:15)
[2024-04-11] MEDS ORDERED: PRED20TA PEG (15:15)
[2024-04-11] MEDS ORDERED: B-12100010 PEG (15:15)
[2024-04-11] MEDS ORDERED: ATOR40TA75 PEG (15:15)
[2024-04-11] MEDS ORDERED: LEVO1TAB40 PEG (15:15)
== END 2024-04-11 16:32 | disposition home health service (06) | DRG 91 ==
LOC: M ED 10:43 → M ED INP 15:55 → M PCU 17:13
PROVIDERS: ADMIT Internal Medicine; ATTEND Internal Medicine
PROC: B246ZZZ Ultrasonography of Right and Left Heart (ICD-10-PCS; principal; 2024-04-08)
PROC: 30233N1 Transfusion of Nonautologous Red Blood Cells into Peripheral Vein, Percutaneous Approach (ICD-10-PCS; 2024-04-10)
DX: R47.01 Aphasia (principal); G93.41 Metabolic encephalopathy; G45.9 Transient cerebral ischemic attack, unspecified; N17.9 Acute kidney failure, unspecified; I47.20 Ventricular tachycardia, unspecified; I48.20 Chronic atrial fibrillation, unspecified; E87.1 Hypo-osmolality and hyponatremia; I5A Non-ischemic myocardial injury (non-traumatic); E78.5 Hyperlipidemia, unspecified; R13.12 Dysphagia, oropharyngeal phase; R49.0 Dysphonia; E86.0 Dehydration; I12.9 Hypertensive chronic kidney disease with stage 1 through stage 4 chronic kidney disease, or unspecified chronic kidney disease; R63.4 Abnormal weight loss; R41.0 Disorientation, unspecified; D50.9 Iron deficiency anemia, unspecified; Z66 Do not resuscitate; N18.30 Chronic kidney disease, stage 3 unspecified; I49.5 Sick sinus syndrome; I35.0 Nonrheumatic aortic (valve) stenosis; J38.3 Other diseases of vocal cords; F03.A0 Unspecified dementia, mild, without behavioral disturbance, psychotic disturbance, mood disturbance, and anxiety; Z93.1 Gastrostomy status; Z95.0 Presence of cardiac pacemaker; Z79.01 Long term (current) use of anticoagulants; Z79.899 Other long term (current) drug therapy; Z90.49 Acquired absence of other specified parts of digestive tract

== ENCOUNTER 2024-04-16 12:15 | Emergency (ER) | payer MEDICARE, BC ==
[~2024-04-16] VITALS: Ht 182.9 cm; Wt 91.4 kg
[~2024-04-16 12:15] MED LIST changes: +ASPI81CH8 PEG; +ATOR40TA75 PEG; +B-12100010 PEG; +ELIQ2.5T PO; +FERR325T3 PEG; +LEVO1TAB40 PEG; +PRED20TA PEG; +THERTAB52 PEG; +VENTAER INH
[2024-04-16 13:23] LABS: BASO % 0.1 % (0.0-1.0); HEMATOCRIT 28.6 % (42.0-52.0); HEMOGLOBIN 9.3 g/dl (13.5-17.5); LYMPH # 0.5 10^3/uL (1.5-5.0); LYMPH % 3.7 % (24.0-44.0); MEAN CORPUSCULAR HEMOGLOBIN 32.1 pg (27.0-33.0); MEAN CORPUSCULAR HGB CONC 32.5 g/dl (32.0-36.5); MEAN CORPUSCULAR VOLUME 98.6 fl (80.0-96.0); MONO # 0.6 10^3/uL (0.0-0.8); MONO % 4.1 % (2.0-8.0); NEUTROPHILS # 12.8 10^3/uL (1.5-8.5); PLATELET COUNT, AUTOMATED 292 10^3/uL (150-450); WHITE BLOOD COUNT 14.4 10^3/uL (4.0-10.0)
[2024-04-16 13:42] LABS: INR 1.34; PARTIAL THROMBOPLASTIN TIME 29.6 SECONDS (24.8-34.2); PROTHROMBIN TIME 16.2 SECONDS (12.5-14.5)
[2024-04-16] MEDS: SILVER NITRATE APPLICATOR (1 = QTY 10) TOP ONE (15:00)
[2024-04-16] MEDS ORDERED: LIDOCAINE 1% SDV 30ML VIAL SC SCH (15:00)
[2024-04-16] MEDS: OXYMETAZOLINE 0.05% NASAL SPRAY (AFRIN) ONE (15:00)
[2024-04-16] MEDS: LIDOCAINE 1% MDV 20ML VIAL SC ONE (16:00)
[2024-04-16 16:51] VITALS: BP 123/81; TEMP 98.6; O2SAT 97
== END 2024-04-16 16:53 | disposition home or self-care (01) ==
LOC: M ED 12:15
DX: R04.0 Epistaxis (principal); Z79.51 Long term (current) use of inhaled steroids; Z79.1 Long term (current) use of non-steroidal anti-inflammatories (NSAID); Z79.810 Long term (current) use of selective estrogen receptor modulators (SERMs); Z79.52 Long term (current) use of systemic steroids; Z79.899 Other long term (current) drug therapy

== ENCOUNTER → 2024-05-17 | Outpatient (CLI) | payer MEDICARE, BC ==
[~2024-05-17] MED LIST changes: +BARIUM SULFATE 700 MG TABLET (E-Z-DISK) As Ordered ONE; +E-Z-PAQUE 96% w/w SUSP 176GM BTL As Ordered ONE; +VARIBAR NECTAR 40% w/v 240ML SUSP BTL As Ordered ONE; +VARIBAR PUDDING 40% w/v 230ML TUBE As Ordered ONE
== END ==
LOC: M RAD 10:54
PROVIDERS: ATTEND Otolaryngology
DX: R13.10 Dysphagia, unspecified (principal)